=== PATIENT | male | born 1950 | race Caucasian/White ===

== ENCOUNTER → 2016-09-27 | Outpatient (CLI) | payer OTHER | LOC: KOH-I 10:56 | DX: S46.011A Strain of muscle(s) and tendon(s) of the rotator cuff of right shoulder, initial encounter (principal); M19.011 Primary osteoarthritis, right shoulder | CPT/HCPCS: 73221 ==

== ENCOUNTER → 2020-05-29 | Outpatient (CLI) | payer MEDICARE, OTHER ==
[~2020-05-29] MED LIST: ALBUTEROL1.25 MG/3 INH; AMLODIPINE BESY10 MG PO; ASPIR 8181 MG PO; BREO ELLIPTA 11 EACH INH; CELECOXIB200 MG PO; COREG6.25 MG PO; COZAAR50 MG PO; GABAPENTIN800 MG PO; IBUPROFEN800 MG PO; LIPITOR80 MG PO; METOPROLOL TART25 MG PO; OXYCODON-ACETA1 EAC1 PO; VENTOLIN HFA 66.7 GM INH; VOLTAREN EC 7575 MG PO
== END ==
LOC: MRI 10:15
DX: S86.011A Strain of right Achilles tendon, initial encounter (principal); M77.51 Other enthesopathy of right foot and ankle; M72.2 Plantar fascial fibromatosis
CPT/HCPCS: 73718

== ENCOUNTER → 2020-06-18 | Outpatient (CLI) | payer MEDICARE | LOC: KOH-I 09:24 | DX: Z01.818 Encounter for other preprocedural examination (principal); I73.9 Peripheral vascular disease, unspecified | CPT/HCPCS: 93926 ==

== ENCOUNTER → 2020-11-23 | Outpatient (CLI) | payer MEDICARE ==
[2020-11-23 10:22] LABS: HEMOGLOBIN 13.9 gm/dl (14.0-17.5); RED BLOOD COUNT 4.65 M/UL (4.20-5.50); WHITE BLOOD COUNT 7.3 K/UL (4.5-11.0)
[2020-11-23 10:56] LABS: BUN/CREATININE RATIO 15 (0-10)
== END ==
LOC: EDSTATUS 09:00 → OPSV2 09:00
PROVIDERS: Orthopaedic Surgery
DX: Z01.818 Encounter for other preprocedural examination (principal); I77.6 Arteritis, unspecified
CPT/HCPCS: 36415; 71046; 80048; 85025; 87081

== ENCOUNTER 2020-12-02 06:47 | Day surgery (SDC) | payer MEDICARE ==
[~2020-12-02] VITALS: Ht 172.7 cm; Wt 104.3 kg
[~2020-12-02 06:47] MED LIST changes: -CELECOXIB200 MG PO; -GABAPENTIN800 MG PO; -OXYCODON-ACETA1 EAC1 PO
[2020-12-02] MEDS ORDERED: OXYCODON-ACETA1 EAC1 PO (15:38)
[2020-12-02] MEDS ORDERED: CELECOXIB200 MG PO (15:39)
[2020-12-02] MEDS ORDERED: GABAPENTIN800 MG PO (15:39)
[2020-12-03 05:26] LABS: HEMOGLOBIN 12.1 gm/dl (14.0-17.5); RED BLOOD COUNT 4.07 M/UL (4.20-5.50)
[2020-12-03 05:43] LABS: BUN/CREATININE RATIO 16 (0-10)
== END 2020-12-03 14:04 | disposition home or self-care (01) ==
LOC: OR 06:47 → M/S 06:47 → EDSTATUS 10:45 → M/S 15:13 → OR 12-03 14:04
PROVIDERS: Orthopaedic Surgery
PROC: 3E0T3BZ Introduction of Anesthetic Agent into Peripheral Nerves and Plexi, Percutaneous Approach (ICD-10-PCS; 2020-12-02)
PROC: 0RRJ0JZ Replacement of Right Shoulder Joint with Synthetic Substitute, Open Approach (ICD-10-PCS; principal; 2020-12-02 10:45)
DX: M19.011 Primary osteoarthritis, right shoulder (principal); I10 Essential (primary) hypertension; E78.5 Hyperlipidemia, unspecified; J44.9 Chronic obstructive pulmonary disease, unspecified; K21.9 Gastro-esophageal reflux disease without esophagitis; I25.10 Atherosclerotic heart disease of native coronary artery without angina pectoris; Z20.822 Contact with and (suspected) exposure to COVID-19; Z79.82 Long term (current) use of aspirin; Z79.51 Long term (current) use of inhaled steroids; Z79.899 Other long term (current) drug therapy; Z95.1 Presence of aortocoronary bypass graft
CPT/HCPCS: 36415; 73020; 80048; 85027; 94640; 94664; 94760; C1776; J0592; J0690; J1100; J1200; J1885; J2250; J2270; J2704; J2710; J2795; J3370; J3475; J7120